=== PATIENT | female | born 1975 | race Caucasian/White ===

== ENCOUNTER → 2024-07-25 | Outpatient (CLI) | payer OTHER ==
--- NOTE | 2024-07-25 08:43 | BD ---
EXAMINATION TYPE: Axial Bone Density DATE OF EXAM: 07/25/2024 CLINICAL HISTORY: 48 years old Female. ICD-10 CODE: Z13.820 OSTEO SCREENING , Additional History: Height: 66.5 in Weight: 187 lbs FRAX RISK QUESTIONS: History of Fracture in Adulthood: dean feet fx age 43 Secondary Osteoporosis: 3. Menopause before 45: partial hysterectomy age 43 EXAM MEASUREMENTS: Bone mineral densitometry was performed using the [employer] System. Bone mineral density as measured about the Lumbar spine is: ----- L1-L4(G/cm2): 1.414 T Score Values are as follows: ----- L1: 1.2 ----- L2: 1.4 ----- L3: 1.5 ----- L4: 3.1 ----- L1-L4: 2.0 Z Score Values are as follows: ----- L1: 0.9 ----- L2: 1.2 ----- L3: 1.2 ----- L4: 2.9 ----- L1-L4: 1.7 Bone mineral density baseline Bone mineral density about the R hip (g/cm2): 1.206 Bone mineral density about the L hip (g/cm2): 1.173 T Score values are as follows: -----R Neck: 0.7 -----L Neck: 0.1 -----R Total: 1.6 -----L Total: 1.3 Z Score values are as follows: -----R Neck: 1.1 -----L Neck: 0.5 -----R Total: 1.6 -----L Total: 1.3 Bone mineral density baseline FRAX%s: The graph provided illustrates a 6.5% chance for a major osteoporotic fx and a 0.1% chance fo r the hips probability for fx in 10 years time. IMPRESSION: Normal (Values between +1 and -1 indicate normal bone mass). Consider repeating this study in 5 year s or sooner if there is some new clinical indication. NOTE: T-SCORE=SD OF THE YOUNG ADULT MEAN. [facility], , 07/25/2024 8:41 AM
--- NOTE | 2024-07-25 10:13 | MM ---
Reason for Exam: Screening (asymptomatic). Last mammogram was performed 3 year(s) and 10 month(s) ago. Patient History: Menarche at age 10. First Full-Term at age 21. Hysterectomy at age 43. Currently using Estrogen and Progesterone, starting at age 48. Maternal aunt had breast cancer, age 35. Risk Values: Rosita 5 year model risk: 0.9%. NCI Lifetime model risk: 8.0%. Prior Study Comparison: 12/20/2017 Bilateral Screening Mammogram, [facility]. 01/07/2019 Bilateral Screening Mammogram, [facility]. 09/17/2020 Bilateral Screening Mammogram, [facility]. Tissue Density: The breasts are heterogeneously dense, which may obscure small masses. Findings: Analyzed By CAD. There is no suspicious group of microcalcifications or new suspicious mass in either breast. Bilateral implants are intact. Overall Assessment: Benign, BI-RAD 2 Management: Screening Mammogram of both breasts in 1 year. . Patient should continue monthly self-breast exams. A clinical breast exam by your physician is recommended on an annual basis. This exam should not preclude additional follow-up of suspicious palpable abnormalities. Note on Rosita scores and lifetime risk: 1. A Rosita score greater than 3% is considered moderate risk. If this is the case, consider specialist referral to assess eligibility for a risk reducing agent. 2. If overall lifetime risk for the development of breast cancer is 20% or higher, the patient may qualify for future screening with alternating mammogram and breast MRI. [facility], , 07/25/2024 10:10 AM. Electronically signed and approved by: David Spicer M.D. Radiologis
== END | disposition home or self-care (01) ==
LOC: RADBDWWP 07:56
PROVIDERS: ATTEND Internal Medicine Infectious Disease
DX: Z12.31 Encounter for screening mammogram for malignant neoplasm of breast (principal); Z13.820 Encounter for screening for osteoporosis; R92.333 Mammographic heterogeneous density, bilateral breasts; Z80.3 Family history of malignant neoplasm of breast; Z98.82 Breast implant status; Z78.0 Asymptomatic menopausal state
CPT/HCPCS: 77063; 77067; 77080

== ENCOUNTER → 2024-08-15 | Outpatient (CLI) | payer OTHER | END | disposition home or self-care (01) | LOC: LABWHC1 15:20 | PROVIDERS: ATTEND Nurse Practitioner Family | DX: R68.82 Decreased libido (principal) | CPT/HCPCS: 36415; 84270; 84402; 84403 ==

== ENCOUNTER → 2024-11-13 | Outpatient (CLI) | payer OTHER | END | disposition home or self-care (01) | LOC: LABWHC1 07:21 | DX: R68.82 Decreased libido (principal); Z79.890 Hormone replacement therapy | CPT/HCPCS: 36415; 84402; 84403 ==